=== PATIENT | female | born 1960 | race African-American/Black ===

== ENCOUNTER 2016-04-17 07:17 | Inpatient (IN) | payer MEDICAID ==
[2016-04-17] MEDS ORDERED: NORMAL SALINE 1000 ML 1,000 ML IV ONE ×2 (07:27→11:32)
[2016-04-17] MEDS ORDERED: HYDROCODONE/ACETAMINOPHEN 5-325 MG TABLET PO ONE (07:42)
[2016-04-17 08:17] LABS: ABSOLUTE BASOPHILS # (AUTO) 0.1 10^3/uL (0.0-0.2); ABSOLUTE LYMPHOCYTES (AUTO) 0.8 10^3/uL (0.5-4.7); ABSOLUTE MONOCYTES (AUTO) 0.6 10^3/uL (0.1-1.4); ABSOLUTE NEUT (AUTO) 10.5 10^3/uL (1.7-8.2); BASOPHILS % (AUTO) 0.7 % (0-2); HEMATOCRIT 35.5 % (36.0-47.0); HEMOGLOBIN 11.7 g/dL (12.0-15.5); HGB HCT DIFFERENCE -0.4; LYMPHOCYTES % (AUTO) 6.7 % (13-45); MEAN CORPUSCULAR HEMOGLOBIN 28.2 pg (27.0-33.4); MEAN CORPUSCULAR VOLUME 85 fl (80-97); MONOCYTES % (AUTO) 4.9 % (3-13); RED BLOOD COUNT 4.16 10^6/uL (3.72-5.28); RED CELL DISTRIBUTION WIDTH 12.9 % (11.5-14.0); SEGMENTED NEUTROPHILS % (AUTO) 87.7 % (42-78); WHITE BLOOD COUNT 11.9 10^3/uL (4.0-10.5)
[2016-04-17 08:35] LABS: AMORPHOUS SEDIMENT,URINE TRACE /HPF; APPEARANCE,URINE TURBID; BILIRUBIN,URINE NEGATIVE (NEGATIVE); GLUCOSE, URINE NEGATIVE (NEGATIVE); KETONES,URINE NEGATIVE (NEGATIVE); LEUKOCYTE ESTERASE,URINE MODERATE (NEGATIVE); NITRITE,URINE NEGATIVE (NEGATIVE); PROTEIN,URINE NEGATIVE (NEGATIVE); URINE SPECIFIC GRAVITY 1.025; UROBILINOGEN,URINE NEGATIVE mg/dL (<2.0)
[2016-04-17 08:39] LABS: ALANINE AMINOTRANSFERASE 31 U/L (9-52); ALBUMIN 3.7 g/dL (3.5-5.0); ALKALINE PHOSPHATASE 110 U/L (38-126); ANION GAP 12 (5-19); ASPARTATE AMINO TRANSFERASE 24 U/L (14-36); BILIRUBIN,TOTAL 0.6 mg/dL (0.2-1.3); BLOOD UREA NITROGEN 8 mg/dL (7-20); CALCIUM 9.5 mg/dL (8.4-10.2); CARBON DIOXIDE 26 mmol/L (22-30); CHLORIDE 103 mmol/L (98-107); CREATININE RESULT 0.62 mg/dL (0.52-1.25); GLUCOSE 116 mg/dL (75-110); LIPASE 141.5 U/L (23-300); SODIUM 140.7 mmol/L (137-145); TOTAL PROTEIN 6.7 g/dL (6.3-8.2)
[2016-04-17] MEDS ORDERED: CEFTRIAXONE 1 GM/D5W RTU 50 ML IV ONE (11:25)
[2016-04-17] MEDS ORDERED: MORPHINE SULFATE 10 MG/ML INJ IV ONE (11:51)
[2016-04-17] MEDS ORDERED: ONDANSETRON HCL INJ/PF 4 MG/2 ML SDV IV ONE (11:51)
--- NOTE | 2016-04-17 11:58 | ER Document Report ---
ED General - General Chief Complaint: Abdominal Pain Stated Complaint: ABDOMINAL PAIN Mode of Arrival: Ambulatory Information source: Patient Notes: 55-year-old female presents to the emergency department complaining of upper abdominal pain. Reports onset of right upper/mid abdominal pain yesterday afternoon which has persisted into this morning. Describes pain as non-provoked , sharp, nonradiating. States has had loose stools over the last 2 days but denies dark or bloody stool. Reports associated chills with unmeasured temperature at home. Also states has had a mild cough but denies shortness of breath, productive cough, or recent illness. Denies chest pain, shortness of breath, nausea or vomiting, dysuria, vaginal bleeding or discharge. Patient reports had hemicolectomy due to mass in her colon on 03/28/16. TRAVEL OUTSIDE OF THE [place] IN LAST 30 DAYS: No - HPI Onset: Yesterday Onset/Duration: Gradual, Persistent Quality of pain: Achy, Sharp Severity: Moderate Pain Level: 4 Similar symptoms previously: No Recently seen / treated by doctor: Yes - Related Data Allergies/Adverse Reactions: rofecoxib [From Vioxx] Allergy (Severe, Verified 04/17/16 07:35) Anaphylaxis levofloxacin [From Levaquin] Allergy (Unknown, Verified 04/17/16 07:35) Anaphylaxis Home Medications: Current Home Medications Atorvastatin Calcium 10 mg PO WSUPPER 04/17/16 [History] Ergocalciferol (Vitamin D2) [Vitamin D2] 50,000 unit PO MO 04/17/16 [History] Hydrochlorothiazide 12.5 mg PO DAILY 04/17/16 [History] Hydrocodone Bit/Acetaminophen [Hydrocodon-Acetaminophen 5-325] 1 tab PO Q6HP PRN 04/17/16 [History] Paroxetine HCl [Paxil] 20 mg PO QHS 04/17/16 [History] Promethazine HCl 25 mg PO Q6HP PRN 04/17/16 [History] Past Medical History - General Information source: Patient - Social History Smoking Status: Never Smoker Frequency of alcohol use: None Drug Abuse: None Lives with: Family Family History: Reviewed & Not Pertinent - Past Medical History Cardiac Medical History: Reports: Hx Coronary Artery Disease - cholesterol, Hx Hypercholesterolemia, Hx Hypertension Denies: Hx Heart Attack Pulmonary Medical History: Denies: Hx Asthma, Hx Bronchitis, Hx COPD, Hx Pneumonia Neurological Medical History: Denies: Hx Cerebrovascular Accident, Hx Seizures Musculoskeltal Medical History: Denies Hx Arthritis Past Surgical History: Reports: Hx Abdominal Surgery, Hx Section, Hx Tubal Ligation - Immunizations Immunizations up to date: Yes Hx Diphtheria, Pertussis, Tetanus Vaccination: Yes Review of Systems - Review of Systems Constitutional: See HPI EENT: No symptoms reported Cardiovascular: No symptoms reported Respiratory: See HPI Gastrointestinal: See HPI Genitourinary: No symptoms reported Female Genitourinary: No symptoms reported Musculoskeletal: No symptoms reported Skin: No symptoms reported Hematologic/Lymphatic: No symptoms reported Neurological/Psychological: No symptoms reported -: Yes All other systems reviewed and negative Physical Exam - Vital signs Vitals: Pulse Ox 95 04/17/16 07:36 Interpretation: Normal - General General appearance: Appears well, Alert In distress: None - HEENT Head: Normocephalic, Atraumatic Eyes: Normal Pupils: PERRL - Respiratory Respiratory status: No respiratory distress Chest status: Nontender Breath sounds: Normal - CTAB. No: Rhonchi, Wheezing Chest palpation: Normal - Cardiovascular Rhythm: Regular Heart sounds: Normal auscultation Murmur: No Pulses: Normal: Radial Normal capillary refill: Yes - Abdominal Inspection: Normal, Healed incision - Well-healed surgical incision sites with wound edges well approximated and no signs of infection or complication. Distension: No distension Bowel sounds: Normal Tenderness: Tender - Tenderness with palpation to right upper and right lateral abdomen area.. No: Nontender, McBurney's point, Casanova's sign, Guarding, Rebound, Other Organomegaly: No organomegaly - Back Back: Normal, Nontender - Extremities General upper extremity: Normal inspection, Nontender, Normal color, Normal ROM , Normal temperature General lower extremity: Normal inspection, Nontender, Normal color, Normal ROM , Normal temperature. No: Boone's sign - Neurological Neuro grossly intact: Yes Cognition: Normal Orientation: AAOx4 [place] Coma Scale Eye Opening: Spontaneous [place] Coma Scale Verbal: Oriented [place] Coma Scale Motor: Obeys Commands [place] Coma Scale Total: 15 Speech: Normal Motor strength normal: LUE, RUE, LLE, RLE Sensory: Normal - Psychological Associated symptoms: Normal affect, Normal mood - Skin Skin Temperature: Warm Skin Moisture: Dry Skin Color: Normal Course - Re-evaluation Re-evalutation: 04/17/16 11:55 Patient hemodynamically stable, in no distress, afebrile. Patient presentation , lab, and radiologic findings discussed with surgeon concession attendant Dr. Campos and Hospital Dr. Viveros who agrees to assume care, evaluated in the ED, and admit to IMCU. Findings and plan discussed with patient and family members who verbalized understanding and agree with plan. - Vital Signs Vital signs: Temp Pulse Resp BP Pulse Ox 99.6 F 108 H 18 112/66 96 04/17/16 15:13 04/17/16 15:39 04/17/16 15:13 04/17/16 15:13 04/17/16 15:13 - Laboratory Result Diagrams: 04/17/16 07:54 04/17/16 07:54 Laboratory results interpreted by me: 04/17/16 04/17/16 04/17/16 07:54 07:54 07:54 WBC 11.9 H Hgb 11.7 L Hct 35.5 L Seg Neutrophils % 87.7 H Lymphocytes % 6.7 L Absolute Neutrophils 10.5 H Glucose 116 H Urine Blood SMALL H Ur Leukocyte Esterase MODERATE H - Diagnostic Test Radiology reviewed: Image reviewed, Reports reviewed Discharge - Discharge Clinical Impression: Abdominal pain Qualifiers: Abdominal location: right upper quadrant Qualified Code(s): R10.11 - Right upper quadrant pain Pneumonia Qualifiers: Pneumonia type: due to unspecified organism Laterality: bilateral Lung location : lower lobe of lung Qualified Code(s): J18.9 - Pneumonia, unspecified organism Condition: Stable Disposition: HOME, SELF-CARE Admitting Provider: Courtney Viveros Unit Admitted: [facility]
[2016-04-17 13:02] LABS: VENOUS BLOOD BASE EXCESS -2.3 mmol/L; VENOUS BLOOD HCO3 22.9 mmol/L (20-32); VENOUS BLOOD PCO2 40.9 mmHg (35-63); VENOUS BLOOD PH 7.37 (7.30-7.42)
[2016-04-17 13:06] LABS: PROTHROMBIN TIME 13.5 SEC (11.4-15.4)
[2016-04-17] MEDS ORDERED: GUAIFENESIN SYRP 200 MG/10 ML UDC PO PRN (13:12)
[2016-04-17] MEDS ORDERED: ENOXAPARIN SODIUM INJ 40 MG/0.4 ML DISP.SYRIN SUBCUT ONE (14:00)
[2016-04-17] MEDS ORDERED: HYDRALAZINE HCL INJ/PF 20 MG/1 ML SDV IV PRN (14:05)
--- NOTE | 2016-04-17 14:05 | PDOC H&P ---
History of Present Illness Admission Date/PCP: 04/17/16 13:07 Patient complains of: Abdominal pain History of Present Illness: CONSTANTINE FALCON is a 55 year old female that presents with one-day onset of right sided abdominal pain. Incidentally she had a right hemicolectomy done by Dr. Barr of surgery on 03/28/2016. Emergency department provider noted that she had bibasilar atelectasis versus infiltrate on CT scan of the abdomen, however patient has no respiratory symptoms to include cough or shortness of breath. She has a poor appetite, but denies nausea or vomiting. She is having regular bowel movements. Past Medical History Cardiac Medical History: Reports: Coronary Artery Disease - cholesterol, Hyperlipidema, Hypertension Denies: Myocardial Infarction Pulmonary Medical History: Denies: Asthma, Bronchitis, Chronic Obstructive Pulmonary Disease (COPD), Pneumonia Neurological Medical History: Denies: Seizures Musculoskeltal Medical History: Denies: Arthritis Hematology: Denies: Anemia Past Surgical History Past Surgical History: Reports: Section, Tubal Ligation Social History Information Source: Patient Smoking Status: Former Smoker - Quit 30 years ago Frequency of Alcohol Use: None Hx Recreational Drug Use: No Hx Prescription Drug Abuse: No - Advance Directive Resuscitation Status: Full Code Family History Family History: Reviewed & Not Pertinent - Father in MVA Parental Family History Reviewed: Yes Children Family History Reviewed: Yes Sibling(s) Family History Reviewed.: Yes Medication/Allergy Home Medications: Atorvastatin Calcium 10 mg PO WSUPPER 04/17/16 Ergocalciferol (Vitamin D2) [Vitamin D2] 50,000 unit PO MO 04/17/16 Hydrochlorothiazide 12.5 mg PO DAILY 04/17/16 Hydrocodone Bit/Acetaminophen [Hydrocodon-Acetaminophen 5-325] 1 tab PO Q6HP PRN 04/17/16 Paroxetine HCl [Paxil] 20 mg PO QHS 04/17/16 Promethazine HCl 25 mg PO Q6HP PRN 04/17/16 Allergies/Adverse Reactions: rofecoxib [From Vioxx] Allergy (Severe, Verified 04/17/16 07:35) Anaphylaxis levofloxacin [From Levaquin] Allergy (Unknown, Verified 04/17/16 07:35) Anaphylaxis Review of Systems Constitutional: PRESENT: fatigue, weakness. ABSENT: chills, fever(s), headache( s), weight gain, weight loss Eyes: ABSENT: visual disturbances Ears: ABSENT: hearing changes Cardiovascular: ABSENT: chest pain, dyspnea on exertion, edema, orthropnea, palpitations Respiratory: ABSENT: cough, hemoptysis Gastrointestinal: PRESENT: abdominal pain. ABSENT: constipation, diarrhea, hematemesis, hematochezia, nausea, vomiting Genitourinary: ABSENT: dysuria, hematuria Musculoskeletal: ABSENT: joint swelling Integumentary: ABSENT: rash, wounds Neurological: ABSENT: abnormal gait, abnormal speech, confusion, dizziness, focal weakness, syncope Psychiatric: ABSENT: anxiety, depression, homidical ideation, suicidal ideation Endocrine: ABSENT: cold intolerance, heat intolerance, polydipsia, polyuria Hematologic/Lymphatic: ABSENT: easy bleeding, easy bruising Physical Exam Vital Signs: Temp Pulse Resp BP Pulse Ox 98.8 F 23 H 119/75 95 04/17/16 08:02 04/17/16 12:26 04/17/16 12:26 04/17/16 12:26 PHYSICAL EXAM: GENERAL: Appears well, no acute distress HEENT: Normocephalic, no scleral icterus, conjunctiva clear, EOEM intact, PERRLA , moist mucous membranes NECK: trachea midline, no thyromegally RESPIRATORY: Clear to auscultation, no wheezes/rhonchi CARDIAC: Regular rate and rhythm, no murmur/hair/rub ABDOMEN: Soft, right upper quadrant tenderness/guarding, positive bowel sounds RECTAL: deferred : deferred EXTREMITIES: No edema, cyanosis, clubbing MUSCULOSKELETAL: No joint swelling or deformity VASCULAR: normal peripheral pulses NEUROLOGIC: Alert, oriented to person/place/time, normal speech, cranial nerves grossly intact, 5/5 strength in all extremities, tactile sensation intact in all extremities SKIN: No rash, no wounds, no worrisome skin lesions PSYCHIATRIC: Normal mood, normal affect Results Laboratory Results: Labs- All tests 24 hr 04/17/16 04/17/16 04/17/16 07:54 07:54 07:54 WBC 11.9 H RBC 4.16 Hgb 11.7 L Hct 35.5 L MCV 85 MCH 28.2 MCHC 33.0 RDW 12.9 Plt Count 430 Seg Neutrophils % 87.7 H Lymphocytes % 6.7 L Monocytes % 4.9 Eosinophils % 0.0 Basophils % 0.7 Absolute Neutrophils 10.5 H Absolute Lymphocytes 0.8 Absolute Monocytes 0.6 Absolute Eosinophils 0.0 Absolute Basophils 0.1 PT INR VBG pH VBG pCO2 VBG HCO3 VBG Base Excess Sodium 140.7 Potassium 4.0 Chloride 103 Carbon Dioxide 26 Anion Gap 12 BUN 8 Creatinine 0.62 Est GFR ( Amer) > 60 Est GFR (Non-Af Amer) > 60 Glucose 116 H Lactic Acid 1.7 Calcium 9.5 Total Bilirubin 0.6 Direct Bilirubin 0.0 AST 24 ALT 31 Alkaline Phosphatase 110 Total Protein 6.7 Albumin 3.7 Lipase 141.5 Urine Color Urine Appearance Urine pH Ur Specific [place] Urine Protein Urine Glucose (UA) Urine Ketones Urine Blood Urine Nitrite Urine Bilirubin Urine Urobilinogen Ur Leukocyte Esterase Urine WBC (Auto) Urine RBC (Auto) Urine Bacteria (Auto) Squamous Epi Cells Auto U Non-Squamous Epis Auto Amorphous Sediment Auto Urine Mucus (Auto) Urine Ascorbic Acid 04/17/16 04/17/16 04/17/16 07:54 12:41 12:41 WBC RBC Hgb Hct MCV MCH MCHC RDW Plt Count Seg Neutrophils % Lymphocytes % Monocytes % Eosinophils % Basophils % Absolute Neutrophils Absolute Lymphocytes Absolute Monocytes Absolute Eosinophils Absolute Basophils PT 13.5 INR 1.00 VBG pH 7.37 VBG pCO2 40.9 VBG HCO3 22.9 VBG Base Excess -2.3 Sodium Potassium Chloride Carbon Dioxide Anion Gap BUN Creatinine Est GFR ( Amer) Est GFR (Non-Af Amer) Glucose Lactic Acid Calcium Total Bilirubin Direct Bilirubin AST ALT Alkaline Phosphatase Total Protein Albumin Lipase Urine Color YELLOW Urine Appearance TURBID Urine pH 5.0 Ur Specific [place] 1.025 Urine Protein NEGATIVE Urine Glucose (UA) NEGATIVE Urine Ketones NEGATIVE Urine Blood SMALL H Urine Nitrite NEGATIVE Urine Bilirubin NEGATIVE Urine Urobilinogen NEGATIVE Ur Leukocyte Esterase MODERATE H Urine WBC (Auto) 19 Urine RBC (Auto) 2 Urine Bacteria (Auto) TRACE Squamous Epi Cells Auto 3 U Non-Squamous Epis Auto 1 Amorphous Sediment Auto TRACE Urine Mucus (Auto) RARE Urine Ascorbic Acid NEGATIVE Impressions: Abdomen/Pelvis CT 04/17/16 00:00 IMPRESSION: Postsurgical changes with right hemicolectomy and appendectomy. There is some stranding in the fat surrounding the anastomosis between distal small bowel and proximal transverse colon. No abscess or free air or fluid in the area of the anastomosis. Trace pelvic cul-de-sac fluid. Findings discussed with patient's provider, ALEJANDRO Hawkins, in the emergency room Chest X-Ray 04/17/16 11:56 IMPRESSION: NO ACUTE RADIOGRAPHIC FINDING IN THE CHEST. Assessment & Plan - Diagnosis (1) Abdominal pain Qualifiers: Abdominal location: right upper quadrant Qualified Code(s): R10.11 - Right upper quadrant pain Is this a current diagnosis for this admission?: YesPlan: CT scan of the abdomen/pelvis shows bibasilar atelectasis, inflammatory changes in right abdomen which may be postsurgical. Patient has significant right upper quadrant tenderness so I will obtain right upper quadrant ultrasound. I will cover her with IV Zosyn for now. Consult Dr. gill of surgery given recent right hemicolectomy. (2) S/P right colectomy Is this a current diagnosis for this admission?: YesPlan: This was performed by Dr. Barr of surgery on 03/28/2016. (3) Hypertension Is this a current diagnosis for this admission?: Yes - Time Time Spent: Greater than 70 Minutes - Inpatient Certification Medical Necessity: Need For IV Fluids, Need for IV Antibiotics
[2016-04-17] MEDS: PIPERACILLIN SODIUM/TAZOBACTAM 3.375 GM in NORMAL SALINE 100 ML IV SCH ×2 (15:28→22:38)
[2016-04-17] MEDS: DEXTROSE 5%-1/2 NORMAL SALINE 1,000 ML IV PRN (15:31)
[2016-04-17] MEDS: AZITHROMYCIN 500 MG in DEXTROSE 5%-WATER 250 ML IV SCH (16:17)
[2016-04-17] MEDS: MORPHINE SULFATE 10 MG/ML INJ IV PRN (16:18)
--- NOTE | 2016-04-17 16:58 | EKG REPORT ---
SEVERITY:- BORDERLINE ECG - SINUS TACHYCARDIA BORDERLINE T ABNORMALITIES, DIFFUSE LEADS : Confirmed by: Miya English MD 17-Apr-2016 16:57:18
[2016-04-18] MEDS: PIPERACILLIN SODIUM/TAZOBACTAM 3.375 GM in NORMAL SALINE 100 ML IV SCH ×4 (03:31→22:12)
[2016-04-18] MEDS: METRONIDAZOLE 500 MG/NS RTU 100 ML IV SCH ×3 (05:35→23:29)
[2016-04-18] MEDS: MORPHINE SULFATE 10 MG/ML INJ IV PRN ×4 (06:15→20:57)
[2016-04-18 07:41] LABS: HEMATOCRIT 29.9 % (36.0-47.0); HEMOGLOBIN 10.3 g/dL (12.0-15.5); MEAN CORPUSCULAR HEMOGLOBIN 28.9 pg (27.0-33.4); MEAN CORPUSCULAR HGB CONC 34.5 g/dL (32.0-36.0); MEAN CORPUSCULAR VOLUME 84 fl (80-97); RED BLOOD COUNT 3.57 10^6/uL (3.72-5.28); RED CELL DISTRIBUTION WIDTH 12.7 % (11.5-14.0); WHITE BLOOD COUNT 14.1 10^3/uL (4.0-10.5)
[2016-04-18 07:48] LABS: ANION GAP 10 (5-19); BLOOD UREA NITROGEN 5 mg/dL (7-20); CALCIUM 8.7 mg/dL (8.4-10.2); CARBON DIOXIDE 24 mmol/L (22-30); CHLORIDE 105 mmol/L (98-107); CREATININE RESULT 0.59 mg/dL (0.52-1.25); GLUCOSE 115 mg/dL (75-110); POTASSIUM 3.3 mmol/L (3.6-5.0); SODIUM 138.9 mmol/L (137-145)
[2016-04-18] MEDS: ENOXAPARIN SODIUM INJ 40 MG/0.4 ML DISP.SYRIN SUBCUT SCH (09:27)
[2016-04-18] MEDS: DEXTROSE 5%-1/2 NORMAL SALINE 1,000 ML IV PRN (09:34)
--- NOTE | 2016-04-18 11:42 | PDOC CONSULTATION ---
Consultation Consult Date: 04/17/16 History of Present Illness Admission Date/PCP: 04/17/16 13:12 History of Present Illness: Ivy Chong a 55-year-old -[place] female that presents 3 weeks after a right hemicolectomy done by Dr. Barr on 03/28/2016. Pathology revealed a 4/2 cm sessile tubulovillous adenoma of the ileocecal valve. 0/15 lymph nodes. She reports she did well after surgery with minimal pain. She reports her bowel function after surgery is typically soft to loose stools. She reports that 04/16/2016 she had some abdominal discomfort in her right upper abdomen which gradually progressed to sanchez pain. Several times she got up and walked around to try to decrease the pain. She had several loose and then runny bowel movements. The pain continued to progress until it was 10/10. Pain was sharp. The patient left home for the emergency room at 6 AM on 04/17/2016. She denies any blood in her stools. She is taking minimal pain pills, probably only for pills since surgery. Other abdominal surgeries include tubal ligation, 3. She denies fevers, chills, nausea, vomiting, constipation, seizures, tremors, lightheadedness, dizziness, vision changes, cough, cold, sinus drainage, chest pain, shortness of breath, back pain , pain with urination, blood in her urine, leg swelling, rash, itching. Past Medical History Cardiac Medical History: Reports: Hyperlipidema, Hypertension Denies: Coronary Artery Disease, Myocardial Infarction Pulmonary Medical History: Denies: Asthma, Bronchitis, Chronic Obstructive Pulmonary Disease (COPD), Pneumonia Neurological Medical History: Denies: Seizures Endocrine Medical History: Reports: Obesity Denies: Diabetes Mellitus Type 2 GI Medical History: Reports: Other - Recent right hemicolectomy for tubulovillous adenoma. Musculoskeltal Medical History: Denies: Arthritis Hematology: Reports: Anemia - Anemia with Past Surgical History Past Surgical History: Reports: Section - 3, Tubal Ligation, Other - Right hemicolectomy on 03/28/2016 for large tubulovillous adenoma Social History Information Source: Patient Lives with: Family Smoking Status: Former Smoker Last Time Smoked: 31 years ago Frequency of Alcohol Use: None Hx Recreational Drug Use: No Hx Prescription Drug Abuse: No - Advance Directive Resuscitation Status: Full Code Family History Family History: CAD, CVA, DM, Hyperlipidemia, Hypertension Parental Family History Reviewed: Yes Children Family History Reviewed: Yes Sibling(s) Family History Reviewed.: Yes Medication/Allergy Home Medications: Atorvastatin Calcium 10 mg PO WSUPPER 04/17/16 Ergocalciferol (Vitamin D2) [Vitamin D2] 50,000 unit PO MO 04/17/16 Hydrochlorothiazide 12.5 mg PO DAILY 04/17/16 Hydrocodone Bit/Acetaminophen [Hydrocodon-Acetaminophen 5-325] 1 tab PO Q6HP PRN 04/17/16 Paroxetine HCl [Paxil] 20 mg PO QHS 04/17/16 Promethazine HCl 25 mg PO Q6HP PRN 04/17/16 Allergies/Adverse Reactions: rofecoxib [From Vioxx] Allergy (Severe, Verified 04/17/16 07:35) Anaphylaxis levofloxacin [From Levaquin] Allergy (Unknown, Verified 04/17/16 07:35) Anaphylaxis Review of Systems All systems: reviewed and no additional remarkable complaints except as stated Physical Exam Vital Signs: Temp Pulse Resp BP Pulse Ox 99.3 F 105 H 20 127/66 H 96 04/18/16 07:08 04/18/16 07:08 04/18/16 07:08 04/18/16 07:08 04/18/16 07:08 Intake & Output 04/17/16 04/18/16 04/19/16 06:59 06:59 06:59 Intake Total 2426 Output Total 1200 Balance 1226 Weight 92.6 kg General appearance: PRESENT: no acute distress, obese Head exam: PRESENT: normocephalic Eye exam: PRESENT: EOMI Mouth exam: PRESENT: tongue midline Respiratory exam: PRESENT: clear to auscultation allen Cardiovascular exam: PRESENT: RRR GI/Abdominal exam: PRESENT: soft, tenderness - Tender in the right upper quadrant and epigastrium. ABSENT: distended, guarding, rebound Extremities exam: ABSENT: pedal edema Neurological exam: PRESENT: alert, oriented to person, oriented to place, oriented to time, oriented to situation Psychiatric exam: PRESENT: appropriate affect, normal mood Skin exam: PRESENT: pallor. ABSENT: jaundice Results Laboratory Results: 04/18/16 04:08 04/18/16 04:08 04/18/16 04/18/16 04:08 04:08 WBC 14.1 H RBC 3.57 L Hgb 10.3 L Hct 29.9 L MCV 84 MCH 28.9 MCHC 34.5 RDW 12.7 Plt Count 372 Sodium 138.9 Potassium 3.3 L Chloride 105 Carbon Dioxide 24 Anion Gap 10 BUN 5 L Creatinine 0.59 Est GFR ( Amer) > 60 Est GFR (Non-Af Amer) > 60 Glucose 115 H Calcium 8.7 Impressions: Abdomen/Pelvis CT 04/17/16 00:00 IMPRESSION: Postsurgical changes with right hemicolectomy and appendectomy. There is some stranding in the fat surrounding the anastomosis between distal small bowel and proximal transverse colon. No abscess or free air or fluid in the area of the anastomosis. Trace pelvic cul-de-sac fluid. Findings discussed with patient's provider, ALEJANDRO Hawkins, in the emergency room Chest X-Ray 04/17/16 11:56 IMPRESSION: NO ACUTE RADIOGRAPHIC FINDING IN THE CHEST. Abdomen Ultrasound 04/17/16 13:59 IMPRESSION: Findings consistent with biliary sludge. Tiny hepatic cyst. Other findings as noted above Status: Image reviewed by me Assessment & Plan - Diagnosis (1) Abdominal pain Qualifiers: Abdominal location: right upper quadrant Qualified Code(s): R10.11 - Right upper quadrant pain Is this a current diagnosis for this admission?: YesPlan: Right upper quadrant and epigastric pain. Not specifically postprandial. Gallbladder ultrasound showed minimal sludge, but no pericholecystic fluid, gallbladder wall thickening, no Casanova sign. There is inflammation around the anastomosis. No free air or extravasation of contrast to suggest leak. Agree with broad-spectrum antimicrobial coverage. Will add Flagyl for anaerobes. Add SCDs, incentive spirometer. (2) Hypertension Is this a current diagnosis for this admission?: YesPlan: Hypertension and other comorbidities managed by hospitalist service. (3) S/P right colectomy Is this a current diagnosis for this admission?: Yes
--- NOTE | 2016-04-18 12:41 | PDOC PROGRESS REPORT ---
Subjective Progress Note for:: 04/18/16 Subjective:: Some nausea earlier. No vomiting. No bowel movement. Reports pain slightly less than yesterday. Physical Exam Vital Signs: Temp Pulse Resp BP Pulse Ox 99.3 F 105 H 20 127/66 H 96 04/18/16 07:08 04/18/16 07:08 04/18/16 07:08 04/18/16 07:08 04/18/16 07:08 Intake & Output 04/17/16 04/18/16 04/19/16 06:59 06:59 06:59 Intake Total 2426 Output Total 1200 Balance 1226 Weight 92.6 kg General appearance: PRESENT: no acute distress Eye exam: PRESENT: EOMI Respiratory exam: PRESENT: unlabored GI/Abdominal exam: PRESENT: distended - Minimally distended versus baseline., soft, tenderness - Tender in the right upper quadrant and epigastrium.. ABSENT : firm, rebound, rigid Extremities exam: ABSENT: pedal edema, tenderness - tenderness/no Homans sign Musculoskeletal exam: ABSENT: deformity, tenderness Neurological exam: PRESENT: alert, oriented to person, oriented to place, oriented to time, oriented to situation Psychiatric exam: PRESENT: appropriate affect, normal mood Results Laboratory Results: 04/18/16 04:08 04/18/16 04:08 04/18/16 04/18/16 04:08 04:08 WBC 14.1 H RBC 3.57 L Hgb 10.3 L Hct 29.9 L MCV 84 MCH 28.9 MCHC 34.5 RDW 12.7 Plt Count 372 Sodium 138.9 Potassium 3.3 L Chloride 105 Carbon Dioxide 24 Anion Gap 10 BUN 5 L Creatinine 0.59 Est GFR ( Amer) > 60 Est GFR (Non-Af Amer) > 60 Glucose 115 H Calcium 8.7 Impressions: Abdomen/Pelvis CT 04/17/16 00:00 IMPRESSION: Postsurgical changes with right hemicolectomy and appendectomy. There is some stranding in the fat surrounding the anastomosis between distal small bowel and proximal transverse colon. No abscess or free air or fluid in the area of the anastomosis. Trace pelvic cul-de-sac fluid. Findings discussed with patient's provider, ALEJANDRO Hawkins, in the emergency room Chest X-Ray 04/17/16 11:56 IMPRESSION: NO ACUTE RADIOGRAPHIC FINDING IN THE CHEST. Abdomen Ultrasound 04/17/16 13:59 IMPRESSION: Findings consistent with biliary sludge. Tiny hepatic cyst. Other findings as noted above Assessment & Plan - Diagnosis (1) Abdominal pain Qualifiers: Abdominal location: right upper quadrant Qualified Code(s): R10.11 - Right upper quadrant pain Is this a current diagnosis for this admission?: YesPlan: Pain slightly decreased, but white count up slightly. Continue IV antibiotics. Changed nothing by mouth. Increase IV fluid rate. Continue Lovenox/SCDs/ tense/incentive spirometry. Repeat labs in a.m. KUB in a.m. (2) Hypertension Is this a current diagnosis for this admission?: Yes (3) S/P right colectomy Is this a current diagnosis for this admission?: Yes
--- NOTE | 2016-04-18 14:22 | Physician Advisory Note ---
Physician Advisor ProgressNote .: Pursuant to the plan for [facility], I have reviewed the medical record for this patient. Physician Advisor Statement: Possible documentation opportunities if attending agrees: 1. "Acute abd pain, possibly due to " [acute cholecystitis? bowel leak ? developing abscess? ...] 2. ? - "possible developing sepsis due to " [suspected source dx as above ] - Pt w/persistent tachycardia, intermittent tachypnea, borderline hypotension, worsenng leukocytosis, now developing fever. As always, if concerned about any unstable VS or abnormal labs, please comment on them & note what doing about them, & please document each day the potential clinical problems you are concerned could occur if pt not kept in hospital for tx at this time. Thanks for your help with documentation accuracy/specificity improvement! Kathi De La Rosa MD [facility] Physician Advisor, Fellow of Hospital Medicine
--- NOTE | 2016-04-18 15:22 | PDOC PROGRESS REPORT ---
Subjective Progress Note for:: 04/18/16 Subjective:: Patient has continued abdominal pain. She has also been noted to have fevers. Patient denies headache, new focal weakness, chest pain, shortness of breath, nausea, vomiting, diarrhea, constipation. Physical Exam Vital Signs: Temp Pulse Resp BP Pulse Ox 101.9 F H 113 H 22 H 116/64 97 04/18/16 12:33 04/18/16 14:00 04/18/16 12:33 04/18/16 12:33 04/18/16 12:33 Intake & Output 04/17/16 04/18/16 04/19/16 06:59 06:59 06:59 Intake Total 2426 200 Output Total 1200 200 Balance 1226 0 Weight 92.6 kg GENERAL: No acute distress HEENT: Conjunctiva clear, nonicteric, moist mucous membranes, no JVD, midline trachea RESPIRATORY: Clear to auscultation bilaterally, no wheezes, no rhonchi CARDIAC: Regular rate and rhythm, no murmurs/gallops/rubs ABDOMEN: Soft, right upper quadrant tenderness/guarding, positive bowel sounds, no rebound EXTREMETIES: No edema, cyanosis, clubbing NEUROLOGIC: Alert, oriented to person/place/time, CN's grossly intact, no focal deficits SKIN: No rash, wounds PSYCH: Normal mood, normal affect Results Laboratory Results: 04/18/16 04:08 04/18/16 04:08 04/18/16 04/18/16 04:08 04:08 WBC 14.1 H RBC 3.57 L Hgb 10.3 L Hct 29.9 L MCV 84 MCH 28.9 MCHC 34.5 RDW 12.7 Plt Count 372 Sodium 138.9 Potassium 3.3 L Chloride 105 Carbon Dioxide 24 Anion Gap 10 BUN 5 L Creatinine 0.59 Est GFR ( Amer) > 60 Est GFR (Non-Af Amer) > 60 Glucose 115 H Calcium 8.7 Impressions: Abdomen/Pelvis CT 04/17/16 00:00 IMPRESSION: Postsurgical changes with right hemicolectomy and appendectomy. There is some stranding in the fat surrounding the anastomosis between distal small bowel and proximal transverse colon. No abscess or free air or fluid in the area of the anastomosis. Trace pelvic cul-de-sac fluid. Findings discussed with patient's provider, ALEJANDRO Hawkins, in the emergency room Chest X-Ray 04/17/16 11:56 IMPRESSION: NO ACUTE RADIOGRAPHIC FINDING IN THE CHEST. Abdomen Ultrasound 04/17/16 13:59 IMPRESSION: Findings consistent with biliary sludge. Tiny hepatic cyst. Other findings as noted above Assessment & Plan - Diagnosis (1) Sepsis Is this a current diagnosis for this admission?: YesPlan: This appears to be from an intra-abdominal source. This is concerning given patient's recent right hemicolectomy. Surgery is following. Continue Zosyn and Flagyl. Patient is also on azithromycin given possible bibasilar airspace disease on CT scan. (2) Abdominal pain Qualifiers: Abdominal location: right upper quadrant Qualified Code(s): R10.11 - Right upper quadrant pain Is this a current diagnosis for this admission?: YesPlan: Surgery following. Patient has been made nothing by mouth today. IV antibiotics as mentioned above. Await further surgical recommendations. (3) S/P right colectomy Is this a current diagnosis for this admission?: YesPlan: This was performed by Dr. Barr of surgery on 03/28/2016. (4) Hypertension Is this a current diagnosis for this admission?: Yes - Time Time Spent with patient: 25-34 minutes
[2016-04-18] MEDS: AZITHROMYCIN 500 MG in DEXTROSE 5%-WATER 250 ML IV SCH (16:00)
[2016-04-19] MEDS: MORPHINE SULFATE 10 MG/ML INJ IV PRN ×2 (01:15→10:11)
[2016-04-19] MEDS: PIPERACILLIN SODIUM/TAZOBACTAM 3.375 GM in NORMAL SALINE 100 ML IV SCH ×4 (03:00→21:00)
[2016-04-19] MEDS: METRONIDAZOLE 500 MG/NS RTU 100 ML IV SCH ×3 (05:10→22:36)
[2016-04-19] MEDS: ENOXAPARIN SODIUM INJ 40 MG/0.4 ML DISP.SYRIN SUBCUT SCH (10:06)
[2016-04-19 11:22] LABS: ABSOLUTE BASOPHILS # (AUTO) 0.1 10^3/uL (0.0-0.2); ABSOLUTE LYMPHOCYTES (AUTO) 0.8 10^3/uL (0.5-4.7); ABSOLUTE MONOCYTES (AUTO) 1.1 10^3/uL (0.1-1.4); ABSOLUTE NEUT (AUTO) 10.1 10^3/uL (1.7-8.2); BASOPHILS % (AUTO) 0.8 % (0-2); EOSINOPHILS % (AUTO) 0.2 % (0-6); HEMATOCRIT 30.3 % (36.0-47.0); HEMOGLOBIN 10.3 g/dL (12.0-15.5); HGB HCT DIFFERENCE 0.6; LYMPHOCYTES % (AUTO) 6.5 % (13-45); MEAN CORPUSCULAR HEMOGLOBIN 28.8 pg (27.0-33.4); MEAN CORPUSCULAR HGB CONC 34.1 g/dL (32.0-36.0); MEAN CORPUSCULAR VOLUME 84 fl (80-97); MONOCYTES % (AUTO) 8.7 % (3-13); RED BLOOD COUNT 3.59 10^6/uL (3.72-5.28); RED CELL DISTRIBUTION WIDTH 12.6 % (11.5-14.0); SEGMENTED NEUTROPHILS % (AUTO) 83.8 % (42-78); WHITE BLOOD COUNT 12.1 10^3/uL (4.0-10.5)
[2016-04-19] MEDS: ONDANSETRON HCL INJ/PF 4 MG/2 ML SDV IV PRN ×2 (11:27→19:19)
[2016-04-19 11:36] LABS: ANION GAP 11 (5-19); BLOOD UREA NITROGEN 3 mg/dL (7-20); CALCIUM 8.6 mg/dL (8.4-10.2); CARBON DIOXIDE 24 mmol/L (22-30); CHLORIDE 104 mmol/L (98-107); CREATININE RESULT 0.51 mg/dL (0.52-1.25); GLUCOSE 115 mg/dL (75-110); POTASSIUM 3.2 mmol/L (3.6-5.0); SODIUM 138.5 mmol/L (137-145)
--- NOTE | 2016-04-19 12:05 | PDOC PROGRESS REPORT ---
Subjective Progress Note for:: 04/19/16 Subjective:: Patient has continued abdominal pain, however this may be slightly improved. Her fevers have also improved. Patient denies headache, new focal weakness, chest pain, shortness of breath, nausea, vomiting, diarrhea, constipation. Physical Exam Vital Signs: Temp Pulse Resp BP Pulse Ox 99.1 F 101 H 18 122/69 94 04/19/16 07:27 04/19/16 07:27 04/19/16 07:27 04/19/16 07:27 04/19/16 07:27 Intake & Output 04/18/16 04/19/16 04/20/16 06:59 06:59 06:59 Intake Total 2426 2800 Output Total 1200 900 Balance 1226 1900 Weight 92.6 kg 94 kg GENERAL: No acute distress HEENT: Conjunctiva clear, nonicteric, moist mucous membranes, no JVD, midline trachea RESPIRATORY: Clear to auscultation bilaterally, no wheezes, no rhonchi CARDIAC: Regular rate and rhythm, no murmurs/gallops/rubs ABDOMEN: Soft, nondistended, mild right upper quadrant tenderness, positive bowel sounds, no rebound, no guarding EXTREMETIES: No edema, cyanosis, clubbing NEUROLOGIC: Alert, oriented to person/place/time, CN's grossly intact, no focal deficits SKIN: No rash, wounds PSYCH: Normal mood, normal affect Results Laboratory Results: 04/19/16 11:03 04/19/16 11:03 04/19/16 04/19/16 11:03 11:03 WBC 12.1 H RBC 3.59 L Hgb 10.3 L Hct 30.3 L MCV 84 MCH 28.8 MCHC 34.1 RDW 12.6 Plt Count 322 Seg Neutrophils % 83.8 H Lymphocytes % 6.5 L Monocytes % 8.7 Eosinophils % 0.2 Basophils % 0.8 Absolute Neutrophils 10.1 H Absolute Lymphocytes 0.8 Absolute Monocytes 1.1 Absolute Eosinophils 0.0 Absolute Basophils 0.1 Sodium 138.5 Potassium 3.2 L Chloride 104 Carbon Dioxide 24 Anion Gap 11 BUN 3 L Creatinine 0.51 L Est GFR ( Amer) > 60 Est GFR (Non-Af Amer) > 60 Glucose 115 H Calcium 8.6 Impressions: Abdomen/Pelvis CT 04/17/16 00:00 IMPRESSION: Postsurgical changes with right hemicolectomy and appendectomy. There is some stranding in the fat surrounding the anastomosis between distal small bowel and proximal transverse colon. No abscess or free air or fluid in the area of the anastomosis. Trace pelvic cul-de-sac fluid. Findings discussed with patient's provider, ALEJANDRO Hawkins, in the emergency room Chest X-Ray 04/17/16 11:56 IMPRESSION: NO ACUTE RADIOGRAPHIC FINDING IN THE CHEST. Abdomen Ultrasound 04/17/16 13:59 IMPRESSION: Findings consistent with biliary sludge. Tiny hepatic cyst. Other findings as noted above Hepatobiliary Scan Nuclear Medicine 04/18/16 00:00 IMPRESSION: NORMAL STUDY WITHOUT CYSTIC OR COMMON DUCT OBSTRUCTION. Assessment & Plan - Diagnosis (1) Sepsis Is this a current diagnosis for this admission?: YesPlan: This appears to be from an intra-abdominal source. This is concerning given patient's recent right hemicolectomy. Case discussed with Dr. Pérez of surgery and they will assume care. Continue Zosyn and Flagyl. Hospital medicine service will sign off for now. (2) Abdominal pain Qualifiers: Abdominal location: right upper quadrant Qualified Code(s): R10.11 - Right upper quadrant pain Is this a current diagnosis for this admission?: YesPlan: Case discussed with Dr. Pérez of surgery and he feels this may be secondary to a microperforation from recent intra-abdominal surgery. Continue IV antibiotics. Surgery to manage. (3) S/P right colectomy Is this a current diagnosis for this admission?: Yes (4) Hypertension Is this a current diagnosis for this admission?: YesPlan: Stable. Continue to hold routine antihypertensives for now. Continue when necessary IV hydralazine. - Time Time Spent with patient: 25-34 minutes Disposition: Hospital medicine service will sign off for now. Transfer care to surgery service.
--- NOTE | 2016-04-19 13:47 | PDOC PROGRESS REPORT ---
Subjective Progress Note for:: 04/19/16 Subjective:: Feels much better. Mild residual right upper quadrant abdominal pain. Physical Exam Vital Signs: Temp Pulse Resp BP Pulse Ox 98.5 F 107 H 18 123/66 95 04/19/16 11:14 04/19/16 11:14 04/19/16 11:14 04/19/16 11:14 04/19/16 11:14 Intake & Output 04/18/16 04/19/16 04/20/16 06:59 06:59 06:59 Intake Total 2426 2800 Output Total 1200 900 Balance 1226 1900 Weight 92.6 kg 94 kg General appearance: PRESENT: no acute distress Respiratory exam: PRESENT: clear to auscultation allen Cardiovascular exam: PRESENT: RRR GI/Abdominal exam: PRESENT: other - Soft, nondistended, mild right upper quadrant abdominal tenderness but no peritoneal signs. Extremities exam: PRESENT: other - No swelling and no tenderness. Results Laboratory Results: 04/19/16 11:03 04/19/16 11:03 04/19/16 04/19/16 11:03 11:03 WBC 12.1 H RBC 3.59 L Hgb 10.3 L Hct 30.3 L MCV 84 MCH 28.8 MCHC 34.1 RDW 12.6 Plt Count 322 Seg Neutrophils % 83.8 H Lymphocytes % 6.5 L Monocytes % 8.7 Eosinophils % 0.2 Basophils % 0.8 Absolute Neutrophils 10.1 H Absolute Lymphocytes 0.8 Absolute Monocytes 1.1 Absolute Eosinophils 0.0 Absolute Basophils 0.1 Sodium 138.5 Potassium 3.2 L Chloride 104 Carbon Dioxide 24 Anion Gap 11 BUN 3 L Creatinine 0.51 L Est GFR ( Amer) > 60 Est GFR (Non-Af Amer) > 60 Glucose 115 H Calcium 8.6 Impressions: Abdomen/Pelvis CT 04/17/16 00:00 IMPRESSION: Postsurgical changes with right hemicolectomy and appendectomy. There is some stranding in the fat surrounding the anastomosis between distal small bowel and proximal transverse colon. No abscess or free air or fluid in the area of the anastomosis. Trace pelvic cul-de-sac fluid. Findings discussed with patient's provider, ALEJANDRO Hawkins, in the emergency room Chest X-Ray 04/17/16 11:56 IMPRESSION: NO ACUTE RADIOGRAPHIC FINDING IN THE CHEST. Abdomen Ultrasound 04/17/16 13:59 IMPRESSION: Findings consistent with biliary sludge. Tiny hepatic cyst. Other findings as noted above Hepatobiliary Scan Nuclear Medicine 04/18/16 00:00 IMPRESSION: NORMAL STUDY WITHOUT CYSTIC OR COMMON DUCT OBSTRUCTION. Assessment & Plan - Diagnosis (1) Abdominal pain Qualifiers: Abdominal location: right upper quadrant Qualified Code(s): R10.11 - Right upper quadrant pain Is this a current diagnosis for this admission?: YesPlan: HIDA scan is negative. Most likely micro-leak and/or inflammation at her anastomosis that is responding with conservative measures. Continue antibiotics. If she continues to do well we'll plan diet tomorrow and possible discharge the following day on by mouth antibiotics for a week more. Encourage ambulation.
[2016-04-19] MEDS: ATORVASTATIN CALCIUM 10 MG TABLET PO SCH (16:52)
[2016-04-19] MEDS: DEXTROSE 5%-1/2 NORMAL SALINE 1,000 ML IV PRN (19:19)
[2016-04-19] MEDS: PAROXETINE HCL 20 MG TABLET PO SCH (21:00)
[2016-04-20] MEDS: PIPERACILLIN SODIUM/TAZOBACTAM 3.375 GM in NORMAL SALINE 100 ML IV SCH ×4 (02:21→21:23)
[2016-04-20 05:33] LABS: ABSOLUTE BASOPHILS # (AUTO) 0.1 10^3/uL (0.0-0.2); ABSOLUTE EOSINOPHILS # (AUTO) 0.1 10^3/uL (0.0-0.6); ABSOLUTE LYMPHOCYTES (AUTO) 1.1 10^3/uL (0.5-4.7); ABSOLUTE MONOCYTES (AUTO) 0.8 10^3/uL (0.1-1.4); BASOPHILS % (AUTO) 0.7 % (0-2); HEMATOCRIT 29.4 % (36.0-47.0); HEMOGLOBIN 9.5 g/dL (12.0-15.5); HGB HCT DIFFERENCE -0.9; MEAN CORPUSCULAR HEMOGLOBIN 27.7 pg (27.0-33.4); MEAN CORPUSCULAR HGB CONC 32.3 g/dL (32.0-36.0); MEAN CORPUSCULAR VOLUME 86 fl (80-97); MONOCYTES % (AUTO) 8.7 % (3-13); RED BLOOD COUNT 3.42 10^6/uL (3.72-5.28); RED CELL DISTRIBUTION WIDTH 12.6 % (11.5-14.0); SEGMENTED NEUTROPHILS % (AUTO) 77.6 % (42-78)
[2016-04-20] MEDS: METRONIDAZOLE 500 MG/NS RTU 100 ML IV SCH ×3 (05:39→22:35)
[2016-04-20 05:54] LABS: ANION GAP 10 (5-19); BLOOD UREA NITROGEN 3 mg/dL (7-20); CALCIUM 8.7 mg/dL (8.4-10.2); CARBON DIOXIDE 27 mmol/L (22-30); CHLORIDE 104 mmol/L (98-107); CREATININE RESULT 0.55 mg/dL (0.52-1.25); GLUCOSE 117 mg/dL (75-110); POTASSIUM 3.3 mmol/L (3.6-5.0)
[2016-04-20] MEDS: DEXTROSE 5%-1/2 NORMAL SALINE 1,000 ML IV PRN (08:55)
[2016-04-20] MEDS: ENOXAPARIN SODIUM INJ 40 MG/0.4 ML DISP.SYRIN SUBCUT SCH (09:07)
[2016-04-20] MEDS: ATORVASTATIN CALCIUM 10 MG TABLET PO SCH (17:25)
--- NOTE | 2016-04-20 18:13 | PROGRESS NOTE E ---
Progress Note NAME: CONSTANTINE FALCON : 1960 AGE: 55Y DATE: 04/20/2016 ROOM: 331 SUBJECTIVE: The patient complains of minimal right upper quadrant pain at this time. OBJECTIVE: VITAL SIGNS: Noted and stable; blood pressure 129/58, temperature 98.4, pulse 95, respirations 22, saturations 97% on room air. ABDOMEN: The patient's abdomen is soft with mild right upper quadrant tenderness without guarding or rebound. DIAGNOSTIC DATA: The patient's laboratory data was within normal limits 24 hours ago except for a low potassium at 3.3. The patient has been noted to have sludge in the gallbladder. No gallstones were identified. Normal wall thickness. No pericholecystic fluid. The patient's CT scan and ultrasound were reviewed. ASSESSMENT: PATIENT'S RIGHT UPPER QUADRANT TENDERNESS WHICH IS MILD MAY BE RELATED TO HER GALLBLADDER SLUDGE HER ANASTOMOSIS SHOWED NO EVIDENCE OF LEAK. THE PATIENT HAS A HISTORY OF POSTPRANDIAL BLOATING AND EARLY SATIETY WHICH WOULD SUGGEST A GALLBLADDER PATHOLOGY. DISCUSSION: The patient was informed that given the potential that pain is of gallbladder origin and that the right upper quadrant tenderness is of gallbladder origin, she can have a laparoscopic cholecystectomy at a later date as an outpatient. I believe that her symptoms are related to her gallbladder. DICTATING PHYSICIAN: MIN BARAKAT M.D. [id number] PHY#: [id number] ID: [id number] JOB#: [id number] ACCT: [id number] cc:MIN BARAKAT M.D. >
[2016-04-20] MEDS: PAROXETINE HCL 20 MG TABLET PO SCH (21:24)
[2016-04-21] MEDS: PIPERACILLIN SODIUM/TAZOBACTAM 3.375 GM in NORMAL SALINE 100 ML IV SCH ×4 (03:29→20:27)
[2016-04-21] MEDS: DEXTROSE 5%-1/2 NORMAL SALINE 1,000 ML IV PRN ×2 (03:29→14:50)
[2016-04-21] MEDS: METRONIDAZOLE 500 MG/NS RTU 100 ML IV SCH ×3 (06:57→21:54)
[2016-04-21] MEDS: ENOXAPARIN SODIUM INJ 40 MG/0.4 ML DISP.SYRIN SUBCUT SCH (09:39)
[2016-04-21] MEDS: ATORVASTATIN CALCIUM 10 MG TABLET PO SCH (17:19)
[2016-04-21] MEDS: PAROXETINE HCL 20 MG TABLET PO SCH (21:54)
--- NOTE | 2016-04-21 22:03 | PROGRESS NOTE E ---
Progress Note NAME: CONSTANTINE FALCON : 1960 AGE: 55Y DATE: 04/21/2016 ROOM: 331 SUBJECTIVE: The patient is feeling quite well and is without any pain. OBJECTIVE: VITAL SIGNS: Blood pressure 122/74. Temperature 98.6. Pulse 78. Respirations 18. Saturation 97% on room air. ABDOMEN: The patient's abdomen is soft. Bowel sounds are present. There is no tenderness whatsoever in her abdomen. ASSESSMENT: STATUS POST RIGHT HEMICOLECTOMY WITH RE-ADMISSION FOR ABDOMINAL PAIN. DISCUSSION: I believe the patient's symptoms were related to her gallbladder as she has gallbladder sludge on ultrasound, and she has postprandial bloating, gaseousness and early satiety, which are all symptoms for gallbladder dysfunction. However, the patient is presently asymptomatic, and we will be planning on discharging the patient home in the morning. DICTATING PHYSICIAN: MIN BARAKAT M.D. [id number] PHY#: [id number] ID: [id number] JOB#: [id number] ACCT: [id number] cc:MIN BARAKAT M.D. >
[2016-04-22] MEDS: ONDANSETRON HCL INJ/PF 4 MG/2 ML SDV IV PRN (00:23)
[2016-04-22] MEDS: DEXTROSE 5%-1/2 NORMAL SALINE 1,000 ML IV PRN ×2 (01:19→12:19)
[2016-04-22] MEDS: PIPERACILLIN SODIUM/TAZOBACTAM 3.375 GM in NORMAL SALINE 100 ML IV SCH ×2 (02:38→09:26)
[2016-04-22] MEDS: METRONIDAZOLE 500 MG/NS RTU 100 ML IV SCH ×2 (06:04→13:09)
[2016-04-22] MEDS: ENOXAPARIN SODIUM INJ 40 MG/0.4 ML DISP.SYRIN SUBCUT SCH (09:26)
[2016-04-22 13:53] VITALS: BP 119/68
--- NOTE | 2016-04-22 13:54 | DISCHARGE SUMMARY E ---
Discharge Summary NAME: CONSTANTINE FALCON : 1960 AGE: 55Y ADMITTED: 04/17/2016 DISCHARGED: 04/22/2016 DISCHARGE DIAGNOSIS: Abdominal pain, status post right hemicolectomy one month ago with suspicion for biliary colic as the source of her pain. HISTORY/HOSPITAL COURSE: This 55-year-old female underwent a right hemicolectomy by Dr. Barr approximately 1 month ago. The patient was discharged home and was doing quite well until she had developed some right upper quadrant pain, for which she was seen in the emergency room and admitted to the hospital. The patient was suspected to perhaps have a microscopic leak at the anastomosis site; however, a CT scan did not support that. However, the patient was noted to have sludge in the gallbladder and she does have history of postprandial bloating, gassiness, and indigestion. The patient was started on antibiotics, to which she responded well along with pain medication, to which she responded. The patient is now doing quite well. Her abdomen is soft, bowel sounds are present, and she is tolerating her diet well. The patient is now discharged home and is to follow up with Dr. Barr next week. DICTATING PHYSICIAN: MIN BARAKAT M.D. [id number] PHY#: [id number] ID: [id number] JOB#: [id number] ACCT: [id number] cc:Demian SHI M.D. >
== END 2016-04-22 14:41 | disposition home or self-care (01) | DRG 446 ==
LOC: ER 07:17 → EH 13:07 → UNDOADMIN 13:07 → EH 13:12 → 3S 14:42
PROVIDERS: ADMIT Surgery; ATTEND Family Medicine
DX: K82.8 Other specified diseases of gallbladder (principal); Z90.49 Acquired absence of other specified parts of digestive tract; I10 Essential (primary) hypertension; E78.5 Hyperlipidemia, unspecified; E66.9 Obesity, unspecified; R10.11 Right upper quadrant pain; I25.10 Atherosclerotic heart disease of native coronary artery without angina pectoris; Z87.891 Personal history of nicotine dependence; Z68.34 Body mass index [BMI] 34.0-34.9, adult; Z82.49 Family history of ischemic heart disease and other diseases of the circulatory system; Z82.3 Family history of stroke; Z83.3 Family history of diabetes mellitus
CPT/HCPCS: 36415; 71010; 74177; 76705; 78226; 80048; 80053; 81001; 82803; 83605; 83690; 85025; 85027; 85610; 87040; 87086; 93005; 93010; 93976; 96361; 96374; 96375; 99285; A9537; J0456; J0696; J1650; J2270; J2405; J2543; J3490; J7030; J7060; Q9969

== ENCOUNTER → 2016-10-19 | Outpatient (CLI) | payer MEDICAID ==
--- NOTE | 2016-10-19 13:51 | WOMENS IMAGING REPORT ---
EXAM DESCRIPTION: BILAT SCREENING MAMMO W/CAD COMPLETED DATE/TIME: 10/19/2016 12:30 pm REASON FOR STUDY: Z12.31, ROUTINE SCREENING MAMMO Z12.31 ENCNTR SCREEN MAMMOGRAM FOR MALIGNANT NEOP LASM OF LUIS COMPARISON: 2012, 2014 TECHNIQUE: Standard craniocaudal and mediolateral oblique views of each breast recorded using [employer] l acquisition. LIMITATIONS: None. FINDINGS: No masses, calcifications or architectural distortion. No areas of suspicion. Read with the assistance of CAD. .[facility] - R2 [employer] Version 1.3 .[facility] - R2 Cen[employer] Version 1.3 .[facility] - R2 Cenova Version 2.4 .[facility] [place] - R2 Cenova Version 2.4 .[facility] - R2 Health Program Analyst Version 9.2 IMPRESSION: NORMAL MAMMOGRAM. BIRADS 1. BREAST DENSITY: b. There are scattered areas of fibroglandular density. BIRAD: 1 NEGATIVE RECOMMENDATION: ROUTINE SCREENING COMMENT: The patient has been notified of the results by letter per SA requirements. Additional no tification policies are in place for contacting patient with suspicious or incomplete findings. Quality ID #[id number]: The [employer] recommends an annual screening mammogram for women aged 40 years or over. This facility utilizes a reminder system to ensure that all patients receive reminder letters, and/or direct phone calls for appointments. This includes reminders for routine scr eening mammograms, diagnostic mammograms, or other Breast Imaging Interventions when appropriate. Th is patient will be placed in the appropriate reminder system. The [employer] (ACR) has developed recommendations for screening MRI of the breast s in certain patient populations, to be used in conjunction with mammography. Breast MRI surveillanc e may be appropriate for women with more than 20% lifetime risk of developing breast cancer as deter mined by genetic testing, significant family history of the disease, or history of mantle radiation f or Hodgkins Disease. ACR Practice Guidelines 2008. TECHNICAL DOCUMENTATION: FINDING NUMBER: (1) ASSESSMENT: (1) JOB ID: [id number] [employer]- All Rights Reserved
== END ==
LOC: WI 13:16
PROVIDERS: ATTEND Student in an Organized Health Care Education/Training Program
DX: Z12.31 Encounter for screening mammogram for malignant neoplasm of breast (principal)
CPT/HCPCS: 77067; G0202

== ENCOUNTER 2018-01-04 16:28 | Emergency (ER) | payer OTHER ==
[2018-01-04] MEDS ORDERED: ACETAMINOPHEN 325 MG TABLET PO ONE (17:15)
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
[2018-01-04 18:47] VITALS: BP 131/79
== END 2018-01-04 18:49 | disposition home or self-care (01) ==
LOC: ER 16:28
DX: S16.1XXA Strain of muscle, fascia and tendon at neck level, initial encounter (principal); V49.40XA Driver injured in collision with unspecified motor vehicles in traffic accident, initial encounter; M54.12 Radiculopathy, cervical region; M54.2 Cervicalgia; R20.0 Anesthesia of skin; M62.838 Other muscle spasm; M62.830 Muscle spasm of back; I10 Essential (primary) hypertension; Z88.1 Allergy status to other antibiotic agents; Z88.8 Allergy status to other drugs, medicaments and biological substances
CPT/HCPCS: 71046; 72050; 99284

== ENCOUNTER 2018-01-17 06:48 | Day surgery (SDC) | payer OTHER ==
[2018-01-17 07:23] LABS: HEMOGLOBIN 14.4 g/dL (12.0-15.5); MEAN CORPUSCULAR HEMOGLOBIN 29.9 pg (27.0-33.4); MEAN CORPUSCULAR HGB CONC 35.1 g/dL (32.0-36.0); MEAN CORPUSCULAR VOLUME 85 fl (80-97); PLATELET COUNT 361 10^3/uL (150-450); RED BLOOD COUNT 4.82 10^6/uL (3.72-5.28); RED CELL DISTRIBUTION WIDTH 13.2 % (11.5-14.0); WHITE BLOOD COUNT 6.5 10^3/uL (4.0-10.5)
[2018-01-17] MEDS ORDERED: PROPOFOL INJ 200 MG/20 ML VIAL IV ONE (08:34)
[2018-01-17] MEDS ORDERED: FENTANYL CITRATE INJ/PF 100 MCG/2 ML AMPUL IV PRN (09:11)
[2018-01-17] MEDS ORDERED: MEPERIDINE HCL/PF INJ 25 MG/1 ML DISP.SYRIN IV PRN (09:11)
[2018-01-17] MEDS ORDERED: OXYCODONE-ACETAMINOPHEN 5-325 MG TABLET PO PRN ×2 (09:11)
[2018-01-17] MEDS ORDERED: PROMETHAZINE HCL INJ 25 MG/1 ML VIAL IV PRN ×2 (09:11)
[2018-01-17] MEDS ORDERED: DIPHENHYDRAMINE HCL 50 MG/ML VIAL IV PRN (09:11)
--- NOTE | 2018-01-17 09:21 | EKG REPORT ---
SEVERITY:- BORDERLINE ECG - SINUS RHYTHM BORDERLINE T ABNORMALITIES, ANTERIOR LEADS : Confirmed by: Miya English MD 17-Jan-2018 09:20:10
--- NOTE | 2018-01-17 09:54 | Operative Report ---
Operative Report DATE OF SURGERY: 01/17/18 Operative Report: The risks, benefits and alternatives of the procedure including the risk of bleeding, perforation requiring surgery are explained to the patient in detail and informed consent is obtained. Patient is taken back to the operating room and placed in a left, lateral decubital position. Timeout was called. Propofol medication is administered. Rectal examination is done which did not reveal any masses, tears or fissures. An Olympus videoscope was inserted into the patient's rectum. The scope was then carefully advanced all the way to the cecum. The cecum was identified by the usual anatomical landmarks including the ileocecal valve as well as the appendiceal office. Photodocumentation is obtained. The scope was then sequentially pulled back via the various segments of the colon including the ascending colon, hepatic flexure, transverse colon, splenic flexure, descending colon and finally into the rectosigmoid portions of the colon. Retroflexion maneuver is performed. Scope withdrawal time 10 minutes. PREOPERATIVE DIAGNOSIS: Change of bowel habits POSTOPERATIVE DIAGNOSIS: Small intestinal biopsy at the anastomotic site. Internal hemorrhoids OPERATION: Colonoscopy with biopsy SURGEON: HERNÁN CAVAZOS ANESTHESIA: LMAC TISSUE REMOVED OR ALTERED: As noted above. COMPLICATIONS: None. ESTIMATED BLOOD LOSS: None. INTRAOPERATIVE FINDINGS: As noted above. PROCEDURE: Patient tolerated the procedure well. No immediate postprocedure complications are noted. Patient discharged in good condition. Discharge date 01/17/2018. Discharge diet: Regular. Discharge activity: Regular. 2-3-week follow-up to discuss findings. Patient is instructed call the office or proceed to the emergency room should there be any further problems or questions. Wait on the pathology.
[2018-01-17 10:07] VITALS: BP 107/72
== END 2018-01-17 10:10 | disposition home or self-care (01) ==
LOC: OROUT 06:48
PROVIDERS: ATTEND Internal Medicine Gastroenterology
DX: K64.8 Other hemorrhoids (principal); R19.4 Change in bowel habit; E11.9 Type 2 diabetes mellitus without complications; I10 Essential (primary) hypertension; E78.2 Mixed hyperlipidemia; E87.1 Hypo-osmolality and hyponatremia; F41.1 Generalized anxiety disorder; E34.9 Endocrine disorder, unspecified; Z79.899 Other long term (current) drug therapy
CPT/HCPCS: 45380; 36415; 84132; 85027; 88305 ×2; 93005; 93010; J2704; 811

== ENCOUNTER 2018-01-22 20:34 | Emergency (ER) | payer OTHER ==
[2018-01-22] MEDS ORDERED: ACETAMINOPHEN 325 MG TABLET PO ONE (21:46)
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
[2018-01-22 22:13] LABS: ABSOLUTE BASOPHILS # (AUTO) 0.1 10^3/uL (0.0-0.2); ABSOLUTE EOSINOPHILS # (AUTO) 0.1 10^3/uL (0.0-0.6); ABSOLUTE LYMPHOCYTES (AUTO) 2.3 10^3/uL (0.5-4.7); ABSOLUTE MONOCYTES (AUTO) 0.7 10^3/uL (0.1-1.4); ABSOLUTE NEUT (AUTO) 5.9 10^3/uL (1.7-8.2); BASOPHILS % (AUTO) 0.8 % (0-2); EOSINOPHILS % (AUTO) 1.1 % (0-6); HEMATOCRIT 36.5 % (36.0-47.0); HEMOGLOBIN 12.7 g/dL (12.0-15.5); LYMPHOCYTES % (AUTO) 25.3 % (13-45); MEAN CORPUSCULAR HGB CONC 34.9 g/dL (32.0-36.0); MEAN CORPUSCULAR VOLUME 86 fl (80-97); MONOCYTES % (AUTO) 7.4 % (3-13); PLATELET COUNT 326 10^3/uL (150-450); RED BLOOD COUNT 4.25 10^6/uL (3.72-5.28); SEGMENTED NEUTROPHILS % (AUTO) 65.4 % (42-78); TOTAL CELLS COUNTED % (AUTO) 100 %
--- NOTE | 2018-01-22 22:15 | RADIOLOGY REPORT (SQ) ---
EXAM DESCRIPTION: XR ABDOMEN SUPINE AND ERECT WITH CHEST (ABD ACUTE SERIES) COMPLETED DATE/TME: 01/22/2018 21:46 CLINICAL HISTORY: 57 years, Female, recent colonoscopy abdominal pain COMPARISON: EXAM DESCRIPTION: CLINICAL HISTORY: recent colonoscopy abdominal pain COMPARISON: None FINDINGS: Frontal view of the chest and supine and upright images of the abdomen were submitted. Cardiac silhouette is within normal limits. There is no focal parenchymal or pleural disease. There is no free air in the abdomen. There is no evidence of bowel obstruction. IMPRESSION: No acute abnormalities. NUMBER OF VIEWS: TECHNIQUE: LIMITATIONS: None. FINDINGS: IMPRESSION: 2010 [email or web address] [employer]- All Rights Reserved
[2018-01-22 22:16] LABS: APPEARANCE,URINE CLEAR; BILIRUBIN,URINE NEGATIVE (NEGATIVE); COLOR,URINE YELLOW; GLUCOSE, URINE NEGATIVE (NEGATIVE); KETONES,URINE NEGATIVE (NEGATIVE); LEUKOCYTE ESTERASE,URINE MODERATE (NEGATIVE); NITRITE,URINE NEGATIVE (NEGATIVE); PROTEIN,URINE NEGATIVE (NEGATIVE); UROBILINOGEN,URINE NEGATIVE mg/dL (<2.0)
[2018-01-22 22:32] LABS: ALANINE AMINOTRANSFERASE 35 U/L (9-52); ALKALINE PHOSPHATASE 112 U/L (38-126); ANION GAP 11 (5-19); ASPARTATE AMINO TRANSFERASE 22 U/L (14-36); BILIRUBIN,DIRECT 0.1 mg/dL (0.0-0.4); BILIRUBIN,TOTAL 0.9 mg/dL (0.2-1.3); BLOOD UREA NITROGEN 7 mg/dL (7-20); CALCIUM 9.7 mg/dL (8.4-10.2); CARBON DIOXIDE 27 mmol/L (22-30); CHLORIDE 102 mmol/L (98-107); GLUCOSE 129 mg/dL (75-110); POTASSIUM 3.4 mmol/L (3.6-5.0); SODIUM 139.7 mmol/L (137-145); TOTAL PROTEIN 7.3 g/dL (6.3-8.2)
[2018-01-22 23:10] VITALS: BP 110/67
== END 2018-01-22 23:18 | disposition home or self-care (01) ==
LOC: ER 20:34
DX: T46.6X5A Adverse effect of antihyperlipidemic and antiarteriosclerotic drugs, initial encounter (principal); R10.84 Generalized abdominal pain; M54.9 Dorsalgia, unspecified; M54.2 Cervicalgia; R10.9 Unspecified abdominal pain; V87.7XXA Person injured in collision between other specified motor vehicles (traffic), initial encounter; Z98.890 Other specified postprocedural states; Z87.891 Personal history of nicotine dependence; I10 Essential (primary) hypertension
CPT/HCPCS: 36415; 74022; 80053; 81001; 85025; 99283

== ENCOUNTER 2018-12-13 10:52 | Emergency (ER) | payer OTHER ==
[2018-12-13 12:21] LABS: ABSOLUTE BASOPHILS # (AUTO) 0.1 10^3/uL (0.0-0.2); ABSOLUTE EOSINOPHILS # (AUTO) 0.3 10^3/uL (0.0-0.6); ABSOLUTE LYMPHOCYTES (AUTO) 1.9 10^3/uL (0.5-4.7); ABSOLUTE MONOCYTES (AUTO) 0.3 10^3/uL (0.1-1.4); ABSOLUTE NEUT (AUTO) 2.8 10^3/uL (1.7-8.2); BASOPHILS % (AUTO) 1.7 % (0-2); EOSINOPHILS % (AUTO) 5.3 % (0-6); HEMATOCRIT 41.1 % (36.0-47.0); HEMOGLOBIN 14.2 g/dL (12.0-15.5); LYMPHOCYTES % (AUTO) 34.9 % (13-45); MEAN CORPUSCULAR HEMOGLOBIN 29.7 pg (27.0-33.4); MEAN CORPUSCULAR HGB CONC 34.5 g/dL (32.0-36.0); MEAN CORPUSCULAR VOLUME 86 fl (80-97); MONOCYTES % (AUTO) 5.5 % (3-13); PLATELET COUNT 330 10^3/uL (150-450); RED BLOOD COUNT 4.77 10^6/uL (3.72-5.28); RED CELL DISTRIBUTION WIDTH 13.3 % (11.5-14.0); SEGMENTED NEUTROPHILS % (AUTO) 52.6 % (42-78); TOTAL CELLS COUNTED % (AUTO) 100 %; WHITE BLOOD COUNT 5.3 10^3/uL (4.0-10.5)
--- NOTE | 2018-12-13 12:27 | ER Document Report ---
ED Medical Screen (RME) - General Chief Complaint: Flank Pain Stated Complaint: FLANK PAIN Time Seen by Provider: 12/13/18 12:21 Mode of Arrival: Ambulatory Information source: Patient Notes: 58-year-old female presented to ED for complaint of right flank pain starting Saturday just before the stone. She states it is more to the back than the front. She states she is having some nausea. She states she is never had any problems with kidney stones or bowel problems. She states it is not getting better. She is alert oriented respirations regular no labored I have reviewed her medical history with her. I have greeted and performed a rapid initial assessment of this patient. A com prehensive ED assessment and evaluation of the patient, analysis of test results and completion of medical decision making process will be conducted by an additional ED providers. TRAVEL OUTSIDE OF THE [place] IN LAST 30 DAYS: No - Related Data Allergies/Adverse Reactions: rofecoxib [From Vioxx] Allergy (Severe, Verified 01/04/18 16:29) Anaphylaxis levofloxacin [From Levaquin] Allergy (Unknown, Verified 01/04/18 16:29) Anaphylaxis Past Medical History - Social History Chew tobacco use (# tins/day): No Frequency of alcohol use: Rare Drug Abuse: None - Past Medical History Cardiac Medical History: Reports: Hx Hypercholesterolemia, Hx Hypertension Pulmonary Medical History: Reports: Hx Asthma EENT Medical History: Reports: None Neurological Medical History: Reports: None Endocrine Medical History: Reports: None Renal/ Medical History: Reports: Hx Ectopic GI Medical History: Reports: Hx Colonoscopy, Hx Endoscopy Musculoskeltal Medical History: Reports Hx Musculoskeletal Deformity, Reports Hx Musculoskeletal Trauma Past Surgical History: Reports: Hx Abdominal Surgery, Hx Bowel Surgery - 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
[2018-12-13 12:39] LABS: ALBUMIN 4.4 g/dL (3.5-5.0); ALKALINE PHOSPHATASE 103 U/L (38-126); ANION GAP 9 (5-19); ASPARTATE AMINO TRANSFERASE 26 U/L (14-36); BILIRUBIN,DIRECT 0.2 mg/dL (0.0-0.4); BILIRUBIN,TOTAL 0.7 mg/dL (0.2-1.3); BLOOD UREA NITROGEN 7 mg/dL (7-20); CALCIUM 10.1 mg/dL (8.4-10.2); CARBON DIOXIDE 27 mmol/L (22-30); CHLORIDE 105 mmol/L (98-107); GLUCOSE 104 mg/dL (75-110); POTASSIUM 3.8 mmol/L (3.6-5.0); TOTAL PROTEIN 7.8 g/dL (6.3-8.2)
[2018-12-13 12:54] LABS: APPEARANCE,URINE SLIGHTLY-CLOUDY; BILIRUBIN,URINE NEGATIVE (NEGATIVE); COLOR,URINE YELLOW; GLUCOSE, URINE NEGATIVE (NEGATIVE); KETONES,URINE NEGATIVE (NEGATIVE); LEUKOCYTE ESTERASE,URINE LARGE (NEGATIVE); NITRITE,URINE NEGATIVE (NEGATIVE); PROTEIN,URINE NEGATIVE (NEGATIVE); URINE SPECIFIC GRAVITY 1.021; UROBILINOGEN,URINE NEGATIVE mg/dL (<2.0)
[2018-12-13] MEDS ORDERED: CEFTRIAXONE 1 GM/D5W RTU 1 GM/50 ML RTUPB IV ONE (14:08)
--- NOTE | 2018-12-13 15:07 | RADIOLOGY REPORT (SQ) ---
EXAM DESCRIPTION: CT ABD/PELVIS NO ORAL OR IV COMPLETED DATE/TIME: 12/13/2018 2:54 pm REASON FOR STUDY: Right flank pain COMPARISON: None. TECHNIQUE: CT scan of the abdomen and pelvis performed without intravenous or oral contrast. Images reviewed with lung, soft tissue, and bone windows. Reconstructed coronal and sagittal MPR images revi ewed. All images stored on PACS. All CT scanners at this facility use dose modulation, iterative reconstruction, and/or weight based d osing when appropriate to reduce radiation dose to as low as reasonably achievable (ALARA). [facility]: Dose Right [facility]: CareDose [facility]: Dose Right [facility]: Teradose 4D [facility]: Smart famPlus RADIATION DOSE: CT Rad equipment meets quality standard of care and radiation dose reduction techniq ues were employed. CTDIvol: 9.2 mGy. DLP: 494 mGy-cm.mGy. LIMITATIONS: None. FINDINGS: LOWER CHEST: No significant findings. No nodules or infiltrates. NON-CONTRASTED LIVER, SPLEEN, ADRENALS: Evaluation limited by lack of IV contrast. No identified sign ificant masses. PANCREAS: No masses. No peripancreatic inflammatory changes. GALLBLADDER: No identified stones by CT criteria. No inflammatory changes to suggest cholecystitis. RIGHT KIDNEY AND URETER: No suspicious masses. Assessment limited by lack of IV contrast. No signif icant calcifications. No hydronephrosis or hydroureter. LEFT KIDNEY AND URETER: No suspicious masses. Assessment limited by lack of IV contrast. No signifi cant calcifications. No hydronephrosis or hydroureter. AORTA AND RETROPERITONEUM: No aneurysm. No retroperitoneal masses or adenopathy. BOWEL AND PERITONEAL CAVITY: Right hemicolectomy. No obvious masses or inflammatory changes. No free fluid. APPENDIX: Surgically absent. PELVIS, BLADDER, AND ABDOMINAL WALL:Partially calcified uterine fibroids. BONES: Nothing acute. OTHER: No other significant finding. IMPRESSION: No acute findings. Uterine fibroids. COMMENT: Quality ID # [id number]: Final reports with documentation of one or more dose reduction techniques (e.g., Automated exposure control, adjustment of the mA and/or kV according to patient size, use of iterative reconstruction technique) TECHNICAL DOCUMENTATION: JOB ID: [id number] [employer]- All Rights Reserved Reading location - IP/workstation name: [email or web address]
[2018-12-13 15:52] VITALS: BP 125/73
--- NOTE | 2018-12-13 16:06 | ER Document Report ---
ED GI/ - General Chief Complaint: Flank Pain Stated Complaint: FLANK PAIN Time Seen by Provider: 12/13/18 12:21 Mode of Arrival: Ambulatory Notes: Patient is complaining of pain in the right back and flank region and her right side that started Saturday. Initially, the pain came and went and was not constant but since last night it has been steady. She has not had any nausea or vomiting or diarrhea. Denies any UTI symptoms. Never had kidney stones. Denies any fever. Patient's had C-sections and obstruction of her colon removed a few years ago for a tumor which was reportedly benign. TRAVEL OUTSIDE OF THE [place] IN LAST 30 DAYS: No - Related Data Allergies/Adverse Reactions: rofecoxib [From Vioxx] Allergy (Severe, Verified 01/04/18 16:29) Anaphylaxis levofloxacin [From Levaquin] Allergy (Unknown, Verified 01/04/18 16:29) Anaphylaxis Past Medical History - General Information source: Patient - Social History Smoking Status: Former Smoker Chew tobacco use (# tins/day): No Frequency of alcohol use: Rare Drug Abuse: None Family History: Reviewed & Not Pertinent, CAD, CVA, DM, Hyperlipidemia, Hypertension Patient has suicidal ideation: No Patient has homicidal ideation: No - Past Medical History Cardiac Medical History: Reports: Hx Hypercholesterolemia, Hx Hypertension Pulmonary Medical History: Reports: Hx Asthma EENT Medical History: Reports: None Neurological Medical History: Reports: None Endocrine Medical History: Reports: None Renal/ Medical History: Reports: Hx Ectopic GI Medical History: Reports: Hx Colonoscopy, Hx Endoscopy Musculoskeletal Medical History: Reports Hx Musculoskeletal Deformity, Reports Hx Musculoskeletal Trauma Past Surgical History: Reports: Hx Abdominal Surgery, Hx Bowel Surgery - 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 EENT: Denies eye, ear, nose or mouth or throat pain or other symptoms. CARDIOVASCULAR: Denies chest pain. RESPIRATORY: Denies cough, chest congestion, or shortness of breath. GASTROINTESTINAL: See HPI. GENITOURINARY: Denies difficulty or painful urinating, urinary frequency, blood in urine. MUSCULOSKELETAL: Denies back or neck pain. Denies joint pain or swelling. SKIN: Denies rash or skin lesions. NEUROLOGICAL: Denies LOC or altered mental status. Denies headache. Denies sensory loss or motor deficits. ALL OTHER SYSTEMS REVIEWED AND NEGATIVE. Physical Exam - Vital signs Vitals: Temp Pulse Resp BP Pulse Ox 97.7 F 74 18 131/74 H 96 12/13/18 11:11 12/13/18 11:11 12/13/18 11:11 12/13/18 11:11 12/13/18 11:11 Interpretation: Normal Notes: PHYSICAL EXAMINATION: GENERAL: Well-appearing, in no acute distress. HEAD: Atraumatic, normocephalic. EYES: Pupils equal round and reactive to light, extraocular movements intact. ENT: oropharynx clear without exudates. Moist mucous membranes. NECK: Normal range of motion, supple. LUNGS: Breath sounds clear and equal bilaterally. HEART: Regular rate and rhythm without murmurs. ABDOMEN: Soft, nontender. No guarding or rebound. No masses. BACK: No tenderness throughout entire back. Tender in the right CVA region of the upper lumbar soft tissue on the right. EXTREMITIES: Normal range of motion without pain. NEUROLOGICAL: Normal speech, normal gait. Normal sensory, motor, and reflex exams. Awake, alert, and oriented x3. Cranial nerves normal. PSYCH: Normal mood, normal affect. SKIN: Warm, dry, no rashes. Course - Re-evaluation Re-evalutation: 12/13/18 20:19 Patient had no significant change in her symptoms during her stay. Patient's urinalysis is questionable for UTI. I have done a culture of her urine and patient was given 1 g of Rocephin IV and put on Macrobid. Also given a prescription for small amount of Percocet to take for pain. - Vital Signs Vital signs: Temp Pulse Resp BP Pulse Ox 98.2 F 66 18 125/73 97 12/13/18 15:50 12/13/18 15:50 12/13/18 11:11 12/13/18 15:50 12/13/18 15:50 - Laboratory Result Diagrams: 12/13/18 12:08 12/13/18 12:08 Laboratory results interpreted by me: 12/13/18 12:08 Urine Blood SMALL H Ur Leukocyte Esterase LARGE H - Diagnostic Test Radiology reviewed: Image reviewed, Reports reviewed - Patient CT scan of the abdomen and pelvis without contrast showed uterine fibroids but otherwise unremarkable. Discharge - Discharge Clinical Impression: Right flank pain, UTI (urinary tract infection) Condition: Stable Disposition: HOME, SELF-CARE Additional Instructions: Flank Pain We weren't able to prove an exact cause for your flank pain. Pain in the flank can be caused by a muscle strain or spasm. Sometimes a kidney stone causes pain, but can't be found on our tests. Infection in the kidney should be evident on a urine test. Early shingles can occasionally cause flank pain, without the rash that proves the diagnosis. On rare occasions, disease of the pancreas, aorta, spleen, or colon can create pain in the flank. At this time, there's no evidence of a dangerous condition, and it seems safe for you to be at home. If the pain goes away and does not come back, no further testing will be needed. If pain persists, or becomes more severe, we may need to repeat some tests or order additional new testing. Blood in the urine, urgency to urinate frequently, and pain that radiates to the groin can indicate a kidney stone. Fever may mean that the pain is due to infection, either of the kidney or the colon (diverticulitis). If your pain is early shingles, you should develop an eruption of blisters in the painful area within a few days. Call the doctor or return if you have pain that is spreading or becoming more severe, pain that does not resolve with time, fever, or any other new symptoms. URINARY TRACT INFECTION: Your evaluation indicates that you have a urinary tract infection. This is due to germs growing in the bladder. This is a common problem. This infection usually responds quickly to antibiotics. Your antibiotic should be taken exactly as prescribed. Drink plenty of fluids -- three to four quarts a day. Occasionally, a bladder anesthetic will be prescribed to help stop the feeling of urgency until the antibiotic has a chance to clear the infection. This may cause your urine to be dark orange. Certain urine infections require a culture. If the doctor obtained a culture, the results will be back in two days. You should call to see if a change in treatment is needed. A repeat urinalysis after you finish treatment is often recommended. The physician will let you know if further testing is required. Call the doctor if you develop fever, chills, flank pain, inability to urinate, or blood in the urine. ANTIBIOTIC THERAPY: You have been given an antibiotic prescription. It's important that you take all the medication, unless instructed otherwise by your physician. Failure to complete the entire course can result in relapse of your condition. Common side effects of antibiotics include nausea, intestinal cramping, or diarrhea. Women may develop vaginal yeast infections, and babies can get yeast (thrush) in the mouth following the use of antibiotics. Contact your physician if you develop significant side effects from this medication. Allergy to this antibiotic can result in hives, wheezing, faintness, or itching. If symptoms of allergy occur, stop the medication and call the doctor. Rocephin You have been given an injection of an antibiotic called Rocephin (ceftriaxone). Sometimes the injection must be combined with antibiotic pills. For some infections, such as an uncomplicated ear infection, Rocephin provides all the antibiotic that's needed. The antibiotic will be in your body for about two days. For serious infections, we usually repeat doses of Rocephin daily. Side effects are very unusual following a shot. Women may develop vaginal yeast infections, and babies can get yeast (thrush) in the mouth following the use of antibiotics. Contact your physician if you have symptoms with this medication. Allergy to this antibiotic can result in hives, wheezing, faintness, or itching. If symptoms of allergy occur, call the doctor at once. NITROFURANTOIN (MACRODANTIN, MACROBID): You have received a prescription for nitrofurantoin (Macrodantin). This antibiotic is used for urinary tract infections. Women who are or nursing should notify the physician before taking this medicine. If you have ever had a problem caused by this medication in the past, be sure the physician is aware of it. Common side effects of this medicine include nausea, vomiting, or decreased appetite. Notify your physician if these side effects become severe. Immediately stop this medicine and call the physician if you develop cough, shortness of breath, chest pain, weakness, jaundice (yellow color of the skin and whites of the eyes), or a skin rash. TRIMETHOPRIM-SULFA: You have been given a prescription for trimethoprim-sulfa (TMS, Septra, Bactrim). This is a combination antibiotic of the sulfa class, often used for urinary tract infections, middle ear infections, bronchitis, shigella intestinal infection, and Pneumocystis pneumonia. TMS is usually well-tolerated. Occasional side effects include nausea and decreased appetite. Septra is not recommended for infants less than two months of age. Do not take this medication if you have experienced severe side effects or allergy to sulfa medicine. You should stop this medicine at once and contact your physician if you develop any rash, joint pain, shortness of breath, bruising, or jaundice (yellow color in the skin), or if you develop any other new or unusual symptoms. Oral Narcotic Medication You have been given a prescription for pain control. This medication is a narcotic. It's best taken with food, as nausea can result if taken on an empty stomach. Don't operate machinery or drive within six hours of taking this medication. Do not combine this medicine with alcohol, or with any medication which can cause sedation (such as cold tablets or sleeping pills) unless you get permission from the physician. Narcotics tend to cause constipation. If possible, drink plenty of fluids and eat a diet high in fiber and fruits. FOLLOW-UP CARE: If you have been referred to a physician for follow-up care, call the physicians office for an appointment as you were instructed or within the next two days. If you experience worsening or a significant change in your symptoms, notify the physician immediately or return to the Emergency Department at any time for re-evaluation. Your evaluation suggests the possibility that you may have a urinary tract infection causing your flank pain. If you have worsening pain or new symptoms such as fever, etc., return for us to reevaluate your condition. I would expect that your symptoms and pain should subside over the next couple of days with the current planned treatment. Prescriptions: Nitrofurantoin/Nitrofuran Mac [Macrobid 100 mg Capsule] 1 tab PO BID #14 capsule Oxycodone HCl/Acetaminophen [Percocet 5-325 mg Tablet] 1 tab PO Q4H PRN #10 tablet PRN Reason:
== END 2018-12-13 16:10 | disposition home or self-care (01) ==
LOC: ER 10:52
DX: N39.0 Urinary tract infection, site not specified (principal); D25.9 Leiomyoma of uterus, unspecified; R10.9 Unspecified abdominal pain; M54.9 Dorsalgia, unspecified; I10 Essential (primary) hypertension; J45.909 Unspecified asthma, uncomplicated; Z87.19 Personal history of other diseases of the digestive system; Z87.892 Personal history of anaphylaxis; Z88.1 Allergy status to other antibiotic agents; Z88.8 Allergy status to other drugs, medicaments and biological substances; Z87.891 Personal history of nicotine dependence; Z90.49 Acquired absence of other specified parts of digestive tract
CPT/HCPCS: 99284; 96365; 36415; 87086; 83690; 85025; 80053; 81001; 74176; J0696